=== PATIENT | female | born 1995 | race Caucasian/White ===

== ENCOUNTER 2023-05-30 11:54 | Outpatient (AMB) | payer OTHER, SELFPAY ==
--- NOTE | 2023-05-30 12:13 | MHC.OFFWIV ---
Intake Vital Signs 05/30/23 12:16 Height 5 ft 5 in Weight 139 lb 8 oz BMI 23.2 BP 114/60 Blood Pressure Location Lt brachial Position Sitting Respiration 13 Pulse 95 Pulse Source Pulse Oximeter Pulse Oximetry (%) 98 Oxygen Delivery Method Room Air Intake Visit Reasons: [place] eye ? scratch on eye Intake Note: Patient is here for a possible scratch on her eye x4 days. Patient bent over and the corner of the laminated paper went into the left eye in an upward motion causing the left eye to become painful, red, and watering. 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 Laminated paper went into the left eye in an upward motion causing the left eye to become painful, red, and watering Has been using Genteal x 1 which caused more burning so she stopped. Has been flushing w/ [id number] which gave some relief Does not wear contacts or lenses. Denies loss of vision Mild headache PFSH Social History Patient Tobacco Use Status: Never used Tobacco Review of Systems Const All systems reviewed & are unremarkable except as noted in HPI and below Eyes Reports photophobia Physical Exam Vital Signs: Last Vital Signs Pulse 95 05/30/23 12:16 Resp 13 05/30/23 12:16 BP 114/60 05/30/23 12:16 Pulse Ox 98 05/30/23 12:16 Oxygen Delivery Method Room Air 05/30/23 12:16 BMI result Body Mass Index 23.2 Const Other: AOx3 Speaking in full sentences Eyes Periorbital: periorbital findings normal Eyelids: Yes eyelids normal Conjunctivae: conjunctival abnormal left conjunctival injection diffuse and discharge (watery) other Sclerae: sclerae normal Corneas: corneas abnormal on the left abrasion curved and at the following clock position (6) Pupils: Equal, round and reactive pupils present EOM: EOMs intact bilaterally Direct Ophthalmoscopy: normal light reflex and photophobia Eyes/upper lids images: 1. abrasion Neuro Cranial nerves: Yes Equal, round and reactive pupils present Assessment & Plan Assessment & Plan (1) Corneal abrasion, left: Code(s): S05.02XA - Injury of conjunctiva and corneal abrasion without foreign body, left eye, initial encounter Qualifiers: Encounter type: initial encounter Qualified Code(s): S05.02XA - Injury of conjunctiva and corneal abrasion without foreign body, left eye, initial encounter Plan: . Medications: New erythromycin 0.5 inches ophthalmic (eye) BID 5 days 3.5 grams 0RF Coding Level of Care Code Est Pt Level 3 (25240) Diagnoses Abrasion of left cornea, initial encounter S05.02XA Encounter type: initial encounter
[2023-05-30 12:16] VITALS: BP 114/60; PULSE 95; RESP 13; O2SAT 98; BMI 23.2
== END 2023-05-30 12:50 | disposition home or self-care (01) ==
PROVIDERS: Visit Provider Nurse Practitioner Family
DX: S05.02XA Injury of conjunctiva and corneal abrasion without foreign body, left eye, initial encounter (principal)
CPT/HCPCS: 99213